=== PATIENT | female | born 1965 | race Caucasian/White ===

== ENCOUNTER 2020-04-29 14:31 | Outpatient (CLI) | payer OTHER, SELFPAY ==
--- NOTE | ~2020-04-29 | MMUS_ITS ---
EXAMINATION: MM diagnostic john BI w [facility], US breast RT limited HISTORY: Follow-up probable benign findings of the right breast. TECHNIQUE: Additional 3-D tomosynthesis images of the breasts were performed and synthetic 2-D images were generated. CAD analysis was submitted and interpreted. High resolution right breast ultrasound was performed. COMPARISON: Comparison to multiple prior studies sequentially, with oldest reviewed study dated 01/20. BREAST PARENCHYMAL COMPOSITION: BREAST PARENCHYMAL COMPOSITION: There are scattered areas of fibroglandular density. FINDINGS: MAMMOGRAPHIC FINDINGS: The breasts are stable. No new masses, calcifications or architectural distortion identified in eithe r breast to suggest malignancy. ULTRASOUND: Right breast ultrasound: At 8:00, 4 cm from the nipple there is a small hypoechoic mass measuring 3 mm maximum dimension witho ut posterior features or internal vascularity, likely complicated cysts. At 8:00, 5 cm from the nippl e, there is a 4 mm cyst. At 10:00, 3 cm from the nipple, there is a 1 cm cyst. IMPRESSION: 1. Probable benign right breast mass at 8:00, 4 cm from the nipple. No definite mammographic correlat e. 2. Recommend 6 month follow-up right breast ultrasound BI-RADS category 3, probably benign findings. Reviewed, dictated and finalized at location A. IMPRESSION: 1. Probable benign right breast mass at 8:00, 4 cm from the nipple. No definite mammographic correlate. 2. Recommend 6 month follow-up right breast ultrasound BI-RADS category 3, probably benign findings.
== END 2020-04-29 14:32 | disposition home or self-care (01) ==
LOC: ANHIMG 14:31
PROVIDERS: PCP Family Medicine; Visit Provider Family Medicine
DX: R92.8 Other abnormal and inconclusive findings on diagnostic imaging of breast (principal)
CPT/HCPCS: 76642; 77062; 77066; G0279

== ENCOUNTER 2020-10-15 13:43 | Emergency (ER) | payer OTHER, SELFPAY ==
[2020-10-15 13:54] VITALS: BP 130/72; PULSE 80; RESP 20; TEMP 36.9; O2SAT 100
[2020-10-15 13:58] VITALS: BP 130/72; PULSE 80; RESP 20; TEMP 36.9; O2SAT 100
--- NOTE | 2020-10-15 14:22 | ED.BACK ---
HPI - Back Pain/Injury General Chief Complaint: Back Pain/Injury Stated Complaint: back pain Source: patient and RN notes reviewed Limitations: no limitations History of Present Illness HPI Narrative: The obese patient, a non-smoker/nondrinker, presents with recurrent low back pain. Patient states she has had a history of lumbar spondylolysis based upon CT scan 2019 showing diffuse L2?s1 canal stenosis, disc bulgings, facet arthreopathy and mild foraminal stenosis. She now complains of opposite, left low back pain that is mild, worse with motion, better at rest. No bowel?bladder symptoms, hematuria/frequency/urgency, weakness, nor radiating pain and numbness [like past, remote episodes]. She has seen pain management and physical therapy in the past, and advised to restart PT exercises Related Data Allergies Allergy/AdvReac Type Severity Reaction Status Date / Time amoxicillin Allergy Unknown hives Verified 04/11/20 13:23 aspirin Allergy Unknown Unknown Verified 04/11/20 13:23 ciprofloxacin Allergy Unknown Unknown Verified 04/11/20 13:23 ibuprofen Allergy Unknown Unknown Verified 04/11/20 13:23 levofloxacin Allergy Unknown Unknown Verified 04/11/20 13:23 Sulfa (Sulfonamide Allergy Unknown Hives Verified 04/11/20 13:23 Antibiotics) sulfamethizole Allergy Unknown Verified 04/11/20 13:23 sulfamethoxazole Allergy Unknown Unknown Verified 04/11/20 13:23 trimethoprim Allergy Unknown Unknown Verified 04/11/20 13:23 lavender (Lavandula Allergy Unknown Verified 04/11/20 13:23 angustifolia) Review of Systems Review of Systems: Narrative: General/Constitutional: No weight loss,fever Eyes: N0: Redness,discharge Ears/Nose/Throat: No: Epistaxis,ear discharge Respiratory: Denies: Hemoptysis Gastrointestinal: No Vomiting, Bleeding-rectal Skin: No Lumps, eruption Neurologic: No Focal Weakness,Sz Hematologic: Denies: Petechiae/Purpura Psychiatric: No: Suicida ideationl All Other Systems: Reviewed and Negative PMFSH Past Medical History Medical History (Updated 10/15/20 @ 14:46 by Trung Scruggs MD) Allergies GERD (gastroesophageal reflux disease) Hyperlipidemia Surgical History Surgical History (Updated 04/11/20 @ 13:23 by Maribell Brumfield) Brain tumor 2006 benign delivery delivered 1993 1995 Family History Family History (System 04/11/20 @ 13:23 by Maribell Brumfield) Father Diabetes mellitus Hypertension Grandparent Diabetes mellitus Mother Hypertension Family history of lung cancer Family history of throat cancer Father Hypertension Family history of diabetes mellitus in first degree relative Mother Hypertension Throat cancer Lung cancer Sibling Family history of elevated blood lipids Grandparent Skin cancer Diabetes mellitus Stomach cancer Hypertension Social History Social History (System 04/11/20 @ 13:23 by Maribell Brumfield) Smoking status: Never smoker Second hand tobacco smoke exposure: Yes Alcohol intake: current Substance use: never Gender identity (if verbalized by the patient): Female Comments At time of signature, agree with nursing past medical, surgical, social and family history. There is no relevant family history pertinent to the presenting complaint Exam Narrative: Exam Narrative: General Appearance: Obese/well nourished, Conjunctiva clear Mouth/Throat: Normal appearing, Supple Respiratory: Airway patent Abdomen: Soft Musculoskeletal: Normal strength (no footdrop, 5/5 : EH L-FHL, gastroc-AT, no saddle weakness) Spine/Back: Paraspinal muscle tender (with mild decreased range of motion; left posterior superior iliac crest) Skin: Normal color Neurological: A&O x3, CN II-XII intact, no foot drop, normal reflexes (symmetric, 2+ KJ, trace AJ) Psychiatric: Normal mood Course Vital Signs Vital signs: Vital Signs Temperature 98.4 F 10/15/20 13:54 Pulse Rate 80 10/15/20 13:54 Respiratory Rate 20 01
== END 2020-10-15 14:27 | disposition home or self-care (01) ==
PROVIDERS: Emergency Provider Emergency Medicine; PCP Family Medicine
DX: M47.816 Spondylosis without myelopathy or radiculopathy, lumbar region (principal); K21.9 Gastro-esophageal reflux disease without esophagitis; E78.5 Hyperlipidemia, unspecified
CPT/HCPCS: 99213; G0463

== ENCOUNTER 2021-02-27 17:06 | Emergency (ER) | payer OTHER, SELFPAY ==
--- NOTE | 2021-02-27 17:13 | ED.FEMALEGU ---
HPI - Female Genitourinary General Chief complaint: Urogenital-Female Stated complaint: uti Time Seen by Provider: 02/27/21 17:13 History of Present Illness HPI Narrative: patient presents withurinary urgency and frequency for the past week. no back or flank pain no abdominal pain no gross hematuria. no concern for std no vaginal discharge Related Data Allergies Allergy/AdvReac Type Severity Reaction Status Date / Time amoxicillin Allergy Unknown hives Verified 04/11/20 13:23 aspirin Allergy Unknown Unknown Verified 04/11/20 13:23 ciprofloxacin Allergy Unknown Unknown Verified 04/11/20 13:23 ibuprofen Allergy Unknown Unknown Verified 04/11/20 13:23 levofloxacin Allergy Unknown Unknown Verified 04/11/20 13:23 Sulfa (Sulfonamide Allergy Unknown Hives Verified 04/11/20 13:23 Antibiotics) sulfamethizole Allergy Unknown Verified 04/11/20 13:23 sulfamethoxazole Allergy Unknown Unknown Verified 04/11/20 13:23 trimethoprim Allergy Unknown Unknown Verified 04/11/20 13:23 lavender (Lavandula Allergy Unknown Verified 04/11/20 13:23 angustifolia) Review of Systems Review of Systems: Narrative: CONSTITUTIONAL: Denies fever, chills, or sweats. EYES: Denies visual changes, redness, or discharge. ENT: Denies rhinorrhea, congestion, sore throat, or otalgia. CARDIOVASCULAR: Denies chest pain, palpitations, or edema. RESPIRATORY: Denies cough or dyspnea. GASTROINTESTINAL: Denies abdominal pain, nausea, vomiting, or diarrhea. GENITOURINARY: Denies dysuria or hematuria. SKIN: Denies rash or itching. MUSCULOSKELETAL: Denies back pain, joint pain, or myalgia. NEUROLOGIC: Denies headache, numbness, or weakness. PSYCHIATRIC: Denies anxiety or depression. [facility] Past Medical History Medical History (Updated 02/27/21 @ 17:30 by ISAIAS Galvin) Allergies GERD (gastroesophageal reflux disease) Hyperlipidemia Surgical History Surgical History Brain tumor 2006 benign delivery delivered 1992 1994 Family History Family History Father Diabetes mellitus Hypertension Grandparent Diabetes mellitus Mother Hypertension Family history of lung cancer Family history of throat cancer Father Hypertension Family history of diabetes mellitus in first degree relative Mother Hypertension Throat cancer Lung cancer Sibling Family history of elevated blood lipids Grandparent Skin cancer Diabetes mellitus Stomach cancer Hypertension Social History Social History Smoking status: Never smoker Second hand tobacco smoke exposure: Yes Alcohol intake: current Substance use: never Gender identity (if verbalized by the patient): Female Comments At time of signature, agree with nursing past medical, surgical, social and family history. There is no relevant family history pertinent to the presenting complaint Exam Narrative: Exam Narrative: GENERAL: Well-appearing, well-nourished, and in no acute distress. HEAD: Normocephalic, atraumatic. EYES: PERRLA and EOMI. ENT: Nares clear, no rhinorrhea or epistaxis. Mucous membranes moist. NECK: Supple. CHEST: Clear to auscultation. No respiratory distress. HEART: Regular rate and rhythm. No murmur heard. Normal peripheral pulses. ABDOMEN: Soft, nontender, nondistended, normal active bowel sounds. EXTREMITIES: Normal range of motion. No edema. SKIN: Warm, dry, no rash. NEURO: No focal deficits. Alert and oriented x3. Julia Coma Scale Eye Opening: Spontaneous 4 Julia Coma Scale Motor: Obeys Commands 6 Julia Coma Scale Verbal: Oriented 5 [place] Coma Scale Total 15 Course Vital Signs Vital signs: Vital Signs Temperature 36.3 C L 02/27/21 17:17 Pulse Rate 90 02/27/21 17:17 Respiratory Rate 18 02/27/21 17:17 Blood Pressure 144/79 H 02/27/21 17:17 Pulse Oximetry 100 0
[2021-02-27 17:17] VITALS: BP 144/79; PULSE 90; RESP 18; TEMP 36.3; O2SAT 100
--- NOTE | 2021-03-01 16:46 | PC.NURSE ---
SUSTAIN[employer] MANAGER Steve Steen called patient regarding urine culture, positive for escherichia coli, called in prescription for macrobid
== END 2021-02-27 17:28 | disposition home or self-care (01) ==
LOC: EXPTROY 17:09
PROVIDERS: Emergency Provider Nurse Practitioner Family; PCP Family Medicine
DX: R30.0 Dysuria (principal); B96.20 Unspecified Escherichia coli [E. coli] as the cause of diseases classified elsewhere; K21.9 Gastro-esophageal reflux disease without esophagitis; E78.5 Hyperlipidemia, unspecified
CPT/HCPCS: 81003; 87077; 87086; 87088; 87186; 99213; G0463

== ENCOUNTER 2021-09-17 16:49 | Emergency (ER) | payer OTHER, SELFPAY ==
--- NOTE | 2021-09-17 16:56 | ED.URI ---
HPI - URI/Sore Throat General Chief Complaint: Upper Respiratory Infection Stated Complaint: cough/wheezing Time Seen by Provider: 09/17/21 17:01 Source: patient and RN notes reviewed Mode of arrival: ambulatory Limitations: no limitations History of Present Illness HPI Narrative: Laura a 5-year-old female patient who ambulated into the [facility] of the [facility]. Patient states she has a 2-week history of sinus congestion, postnasal drainage, and cough. Patient states when she lays at night she feels like she is wheezing. Patient has tried multiple [id number]-fnt-vqrupud cold medicines without relief. Patient states her entire family has had this. Patient states she had a negative Covid test at home MD elicited complaint: cough, nasal congestion and sinus pain Related Data Allergies Allergy/AdvReac Type Severity Reaction Status Date / Time amoxicillin Allergy Unknown hives Verified 09/17/21 17:12 aspirin Allergy Unknown Unknown Verified 09/17/21 17:09 ciprofloxacin Allergy Unknown Unknown Verified 09/17/21 17:09 ibuprofen Allergy Unknown Unknown Verified 09/17/21 17:09 levofloxacin Allergy Unknown Unknown Verified 09/17/21 17:09 Sulfa (Sulfonamide Allergy Unknown Hives Verified 09/17/21 17:09 Antibiotics) sulfamethizole Allergy Unknown Verified 09/17/21 17:09 sulfamethoxazole Allergy Unknown Unknown Verified 09/17/21 17:09 trimethoprim Allergy Unknown Unknown Verified 09/17/21 17:09 lavender (Lavandula Allergy Unknown Verified 09/17/21 17:09 angustifolia) Review of Systems Review of Systems: CONSTITUTIONAL: Denies body aches, fever, chills, or sweats. EYES: Denies visual changes, redness, or discharge. ENT: Denies rhinorrhea,+ congestion, denies sore throat, or otalgia. CARDIOVASCULAR: Denies chest pain, palpitations, or edema. RESPIRATORY: +cough + wheezing, denies dyspnea. GASTROINTESTINAL: Denies abdominal pain, nausea, vomiting, or diarrhea. GENITOURINARY: Denies dysuria or hematuria. SKIN: Denies rash, itching, or wounds. MUSCULOSKELETAL: Denies back pain, joint pain, or myalgia. NEUROLOGIC: Denies headache, numbness, tingling, or weakness. PSYCH: Denies depression or anxiety. All systems reviewed & are unremarkable except as noted in HPI and below PMFSH Past Medical History Medical History Allergies GERD (gastroesophageal reflux disease) Hyperlipidemia Surgical History Surgical History Brain tumor 2006 benign delivery delivered 1992 1994 Family History Family History Father Diabetes mellitus Hypertension Grandparent Diabetes mellitus Mother Hypertension Family history of lung cancer Family history of throat cancer Father Hypertension Family history of diabetes mellitus in first degree relative Mother Hypertension Throat cancer Lung cancer Sibling Family history of elevated blood lipids Grandparent Skin cancer Diabetes mellitus Stomach cancer Hypertension Social History Social History Smoking status: Never smoker Second hand tobacco smoke exposure: Yes Alcohol intake: current Substance use: never Gender identity (if verbalized by the patient): Female Comments At time of signature, I have reviewed and agree with nursing past medical, surgical, social and family history unless otherwise noted. Please see nursing chart for further information. There is no relevant family history pertinent to the presenting complaint Exam Narrative: GENERAL: Well-appearing, well-nourished, and in no acute distress. HEAD: Normocephalic, atraumatic. EYES: EOMI. No redness or drainage. Conjunctivae normal. ENT: Mucous membranes pink and slightly dry. Nasal membranes pale no rhinorrhea noted bilateral tympanic membranes are opaque with moderate amount of fluid no eryth
[2021-09-17 17:02] VITALS: BP 176/98; PULSE 84; RESP 20; TEMP 36.3; O2SAT 100
--- NOTE | 2021-09-17 17:10 | PC.NURSE ---
170- Pt states, she has chronic hives and believes she is really only allergic to: NSAIDs, Cipro, Levaquin and Sulfa drugs.
== END 2021-09-17 17:19 | disposition home or self-care (01) ==
PROVIDERS: Emergency Provider Nurse Practitioner Family; PCP Family Medicine
DX: J32.9 Chronic sinusitis, unspecified (principal); K21.9 Gastro-esophageal reflux disease without esophagitis; E78.5 Hyperlipidemia, unspecified
CPT/HCPCS: 99213; G0463

== ENCOUNTER 2022-02-02 07:21 | Outpatient (CLI) | payer OTHER, SELFPAY ==
--- NOTE | 2022-02-13 16:47 | WPDSLEEPSTUD ---
Sleep Study Date of Study: 02/02/22 Ordering Provider: Renea Castillo DO Interpreting Physician: Nicolle Casarez MD Sleep Study Type: Polysomnogram Height: 1.66 m Weight: 113.398 kg Body Mass Index: 40.9 Neck Circumference (inches): 14 [place]: 10 Reason for Sleep Study Hypersomnolence, difficulty getting to sleep and staying asleep Sleep History Laura Barbour is a 56 year old female with difficulty falling asleep and staying asleep. She wakes up throughout the night. She has excessive daytime sleepiness. She occasionally wakes up from sleep feeling short of breath. She occasionally awakens at night with heartburn, belching or coughing. She constantly snores loudly enough that others complain about it. She frequently has trouble sleeping with a cold. She occasionally wakes up gasping for breath at night. She occasionally has breathing problems at night observed by others. She rarely sweats excessively at night. She occasionally notices her heart pounding or beating irregularly at night. She frequently falls asleep during the day, frequently falls asleep involuntarily, but never falls asleep while driving. She does not have loss of muscle tone with strong emotion. She does not have daytime difficulties due to excessive sleepiness. She occasionally feels paralyzed on waking or falling asleep. She frequently has vivid dreamlike scenes upon awakening or falling asleep. She occasionally feels afraid to go to sleep. She rarely has nightmares. She occasionally remembers her dreams. She constantly has racing thoughts. She rarely feels sad or depressed. She constantly has anxiety. She rarely has muscular tension. She occasionally notices parts of her body jerking. She rarely kicks at night. She occasionally has crawling and aching feelings in her legs. She occasionally has leg pain at night. She does not have morning jaw pain. She occasionally grinds her teeth during sleep. She frequently is bothered by pain during the day. She occasionally is awakened by pain at night. She frequently wakes up feeling stiff in the morning. She occasionally awakens with sore or achy muscles. She frequently wakes up with pain in the neck and spine. She has insomnia, fatigue, headaches and she takes antacids regularly. Normal bedtime is between 12 midnight and 3:00 a.m., taking 30 minutes to fall asleep, typically waking up 1 or 2 times during the night. When she awakens, she uses the bathroom, rolls over and sometimes turns on the television. It takes her 15-30 minutes to return to sleep. She wakes in the morning between 7:00 a.m. and 9:00 a.m.. Weekend schedule is the same. She takes naps in the afternoon or evening. A short nap 10 or 15 minutes long may be refreshing. She is usually drowsy for an hour after waking. She feels better in the afternoon compared other times of day. She frequently has morning headaches. Only on occasion does she awaken feeling refreshed. She frequently has memory and concentration difficulties Habits: Never smoked tobacco. Caffeine 1 cup daily. Occasional alcohol. No recreational drugs. [facility] Past Medical History Medical History (Updated 02/13/22 @ 19:10 by Nicolle Casarez MD) Allergies Anxiety Dyspnea GERD (gastroesophageal reflux disease) Hyperglycemia Hyperlipidemia Lumbar arthropathy Surgical History Surgical History Brain tumor 2006 benign delivery delivered 1992 1994 H/O tubal ligation Family History Family History Father Diabetes mellitus Hypertension Grandparent Diabetes mellitus Mother Hypertension Family history of lung cancer Family history of throat cancer Father Hypertension Family history of diabetes mellitus in first degree relative Mother Hypertension Throat cancer Lung cancer Sibling Family history of elevated blood
[2022-02-13 20:18] VITALS: BMI 40.9
== END 2022-02-03 06:28 | disposition home or self-care (01) ==
LOC: ANHCSM 07:21
PROVIDERS: PCP Family Medicine; Visit Provider Family Medicine
DX: R40.0 Somnolence (principal)
CPT/HCPCS: 95810

== ENCOUNTER 2022-02-06 12:38 | Outpatient (CLI) | payer OTHER, SELFPAY ==
--- NOTE | ~2022-02-06 | MMUS_ITS ---
EXAMINATION: MM diagnostic john BI w [facility], US breast LT limited HISTORY: Bilateral axillary pain TECHNIQUE: Bilateral full field and left spot 3-D tomosynthesis images were performed and synthetic 2 -D images were generated. CAD analysis was submitted and interpreted. High resolution upper outer and lower-outer left breast ultrasound was performed. COMPARISON: 04/29/2020 bilateral diagnostic mammogram and limited right breast ultrasound 03/20/2019 diagnostic mammography and bilateral ultrasound 03/05/2019 bilateral screening mammogram BREAST PARENCHYMAL COMPOSITION: There are scattered areas of fibroglandular density. FINDINGS: MAMMOGRAPHIC FINDINGS: Low-density circumscribed 4 x 7 mm opacity is noted in the outer mid left breast. Ultrasound correlat ion was obtained. Otherwise no suspicious mass, architectural distortion, malignant calcification, skin thickening or r etraction of either breast is detected. ULTRASOUND: 3:00 5 cm from nipple: Parallel circumscribed 1.7 x 4.9 mm sonolucency, consistent with benign proces s. 5:00 10 cm from nipple: Parallel circumscribed sonolucency with through transmission, measuring 2.5 x 5.9 x 6.7 mm, without internal vascularity, consistent with cyst IMPRESSION: 1. Benign findings; no mammographic evidence of malignancy 2. Routine annual mammographic screening is recommended BI-RADS Category 2: Benign finding(s). Reviewed, dictated and finalized at location A. IMPRESSION: 1. Benign findings; no mammographic evidence of malignancy 2. Routine annual mammographic screening is recommended BI-RADS Category 2: Benign finding(s).
== END 2022-02-06 12:39 | disposition home or self-care (01) ==
LOC: ANHIMG 12:40
PROVIDERS: PCP Family Medicine; Visit Provider Family Medicine
DX: N64.4 Mastodynia (principal)
CPT/HCPCS: 76642; 77062; 77066; G0279

== ENCOUNTER 2022-02-15 12:24 | Outpatient (CLI) | payer OTHER, SELFPAY ==
--- NOTE | 2022-02-16 12:53 | WPDPFTINT ---
PFT Procedure Performed PFT Procedure Performed Spirometry with Pre/Post Bronchodilator Plethysmography (Lung Vol) Diffusing Cap (DLCO) Flow Vol Loop PFT Interpretation This is a pulmonary function test with pre and post-bronchodilator spirometry, plethysmography and diffusing capacity. The test was performed and results interpreted in accordance with the 2019 and 2005 ATS/ERS Task Force guidelines respectively using the Global Lung Function Initiative-2012 reference equations. Patient demonstrated good effort and cooperation. Reproducibility criteria were met. The quality of the pre bronchodilator spirometry maneuver was Grade A and post bronchodilator spirometry maneuver was Grade A. Findings: Spirometry: In 2 out of the 3 pre bronchodilator maneuvers and 1 out of the 3 post bronchodilator maneuvers there is a flattened inspiratory and expiratory flow tracing. The pre bronchodilator FVC is 3.62 L, 105% predicted. The pre bronchodilator FEV1 is 2.96 L, 108% predicted. The pre bronchodilator FEV1: FVC ratio was 82%. The post bronchodilator FVC is 3.58 L, representing sent in a 1% decrease. The post bronchodilator FEV1 is 3.00 L, representing 1% increase. The post bronchodilator FEV1: FVC ratio was 84%. Plethysmography: The total lung capacity is 4.43 L, 85% predicted. The functional residual capacity is 1.50 L, 51% predicted. The residual volume is 0.81 L, 42% predicted. Diffusing capacity: The diffusing capacity unadjusted for hemoglobin and carboxyhemoglobin is 14.9, 66% predicted. The diffusing capacity adjusted for alveolar volume is 3.52, 78% predicted. Impression: The contour of the expiratory and inspiratory flow tracing are flattened in half of the maneuvers. There could be a fixed obstruction and this can be seen with extraluminal tracheal obstruction, tracheal stenosis, a goiter or bulky mediastinal lymphadenopathy. Clinical correlation is recommended. Otherwise, the spirometry is normal without evidence of an obstructive abnormality. There is no significant improvement after inhaling a single dose of albuterol. The total lung capacity is normal with a decreased functional residual capacity and residual volume. This is an abnormal but nonspecific lung volume pattern. The diffusing capacity unadjusted for hemoglobin and carboxyhemoglobin is mildly decreased and normalizes when adjusted for alveolar volume. There are no prior studies for comparison.
== END 2022-02-15 12:25 | disposition home or self-care (01) ==
LOC: ANHPFT 12:26
PROVIDERS: PCP Family Medicine; Visit Provider Family Medicine
DX: R06.00 Dyspnea, unspecified (principal)
CPT/HCPCS: 94060; 94726; 94729

== ENCOUNTER 2022-03-21 07:33 | Outpatient (CLI) | payer OTHER, SELFPAY ==
--- NOTE | 2022-04-11 18:06 | WPDSLEEPSTUD ---
Sleep Study Date of Study: 03/21/22 Ordering Provider: Renea Castillo DO Interpreting Physician: Nicolle Casarez MD Sleep Study Type: CPAP Titration Height: 1.65 m Weight: 113.398 kg Body Mass Index: 41.5 Neck Circumference (inches): 15 [place]: 10 Reason for Sleep Study Basic sleep study 02/02/2022 showing mild obstructive sleep apnea, AHI 7.5, severe in supine REM 38.3, desaturation to 83%; presents for a CPAP titration Sleep History Laura Barbour is a 56 year old female with difficulty falling asleep and staying asleep.? She wakes up throughout the night.? She has excessive daytime sleepiness.? She occasionally wakes up from sleep feeling short of breath.? She occasionally awakens at night with heartburn, belching or coughing.? She constantly snores loudly enough that others complain about it.? She frequently has trouble sleeping with a cold.? She occasionally wakes up gasping for breath at night.? She occasionally has breathing problems at night observed by others.? She rarely sweats excessively at night.? She occasionally notices her heart pounding or beating irregularly at night.? She frequently falls asleep during the day, frequently falls asleep involuntarily, but never falls asleep while driving.? She does not have loss of muscle tone with strong emotion.? She does not have daytime difficulties due to excessive sleepiness.? She occasionally feels paralyzed on waking or falling asleep.? She frequently has vivid dreamlike scenes upon awakening or falling asleep.? She occasionally feels afraid to go to sleep.? She rarely has nightmares.? She occasionally remembers her dreams.? She constantly has racing thoughts.? She rarely feels sad or depressed.? She constantly has anxiety.? She rarely has muscular tension.? She occasionally notices parts of her body jerking.? She rarely kicks at night.? She occasionally has crawling and aching feelings in her legs.? She occasionally has leg pain at night.? She does not have morning jaw pain.? She occasionally grinds her teeth during sleep.? She frequently is bothered by pain during the day.? She occasionally is awakened by pain at night.? She frequently wakes up feeling stiff in the morning.? She occasionally awakens with sore or achy muscles.? She frequently wakes up with pain in the neck and spine. ? She has insomnia, fatigue, headaches and she takes antacids regularly. Normal bedtime is between 12 midnight and 3:00 a.m., taking 30 minutes to fall asleep, typically waking up 1 or 2 times during the night.? When she awakens, she uses the bathroom, rolls over and sometimes turns on the television.? It takes her 15-30 minutes to return to sleep.? She wakes in the morning between 7:00 a.m. and 9:00 a.m..? Weekend schedule is the same.? She takes naps in the afternoon or evening.? A short nap 10 or 15 minutes long may be refreshing.? She is usually drowsy for an hour after waking.? She feels better in the afternoon compared other times of day.? She frequently has morning headaches.? Only on occasion does she awaken feeling refreshed.? She frequently has memory and concentration difficulties Habits: ? Never smoked tobacco.? Caffeine 1 cup daily.? Occasional alcohol.? No recreational drugs. PMFSH Past Medical History Medical History Allergies Anxiety Dyspnea GERD (gastroesophageal reflux disease) Hyperglycemia Hyperlipidemia Lumbar arthropathy Surgical History Surgical History Brain tumor 2006 benign delivery delivered 1992 1994 H/O tubal ligation Family History Family History Father Diabetes mellitus Hypertension Grandparent Diabetes mellitus Mother Hypertension Family history of lung cancer Family history of throat cancer Father Hypertension Family history of diabetes mellitus in first degree relative Mother H
[2022-04-11 19:08] VITALS: BMI 41.5
== END 2022-03-22 06:50 | disposition home or self-care (01) ==
LOC: ANHCSM 07:34
PROVIDERS: PCP Family Medicine; Visit Provider Family Medicine
DX: G47.33 Obstructive sleep apnea (adult) (pediatric) (principal); Z68.41 Body mass index [BMI] 40.0-44.9, adult
CPT/HCPCS: 95811

== ENCOUNTER → 2022-03-22 14:49 | Outpatient (CLI) | payer OTHER, SELFPAY ==
--- NOTE | ~2022-03-22 | CT_ITS ---
EXAMINATION: CT soft tissue neck wo con DATE: 03/22/2022 15:05 INDICATION: Airway obstruction. Abnormal lung function tests. Dyspnea. TECHNIQUE: Computed tomography (CT) of the neck was performed without intravenous contrast. Automated exposure control and iterative reconstruction technique were employed. The dose-length product was 4 72.21 mGy-cm. COMPARISON: None FINDINGS: There is focal stenosis of the superior trachea to 7 x 8 mm. There are no pathologically en larged lymph nodes. There are changes of right-sided craniotomy. There is encephalomalacia in the fro ntal lobes of the brain, right worse than left. There is moderate cervical spondylosis. IMPRESSION: 1. 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 Reviewed, dictated and finalized at location B.
== END ==
PROVIDERS: PCP Family Medicine; Visit Provider Family Medicine
DX: R94.2 Abnormal results of pulmonary function studies (principal); R06.00 Dyspnea, unspecified; J39.8 Other specified diseases of upper respiratory tract
CPT/HCPCS: 70490

== ENCOUNTER 2022-06-27 10:16 | Outpatient (CLI) | payer OTHER, SELFPAY ==
--- NOTE | ~2022-06-27 | CT_ITS ---
EXAMINATION:CT diagnostic chest w con DATE: 06/27/2022 10:42 INDICATION: Tracheal stenosis. TECHNIQUE: Computed tomography (CT) of the chest was performed with 75 mL Omnipaque 350 intravenous c ontrast. Automated exposure control and iterative reconstruction technique were employed. The dose-le ngth product (DLP) was 432.89 mGy-cm. COMPARISON: CT neck 03/22/2022 FINDINGS: The lungs demonstrate mild atelectasis. There is a 3 mm nodule in left upper lobe, likely b enign. No pleural effusion. The heart size is normal. No pericardial effusion. There is focal stenosi s of the trachea at C7. The bones are unremarkable. IMPRESSION: 1. Focal stenosis of the superior trachea again seen, which may be an intubation injury if the patien t has never had a tracheostomy. Reviewed, dictated and finalized at location A. IMPRESSION: 1. Focal stenosis of the superior trachea again seen, which may be an intubatio n injury if the patient has never had a tracheostomy.
== END 2022-06-27 10:17 | disposition home or self-care (01) ==
PROVIDERS: PCP Family Medicine
DX: J39.8 Other specified diseases of upper respiratory tract (principal)
CPT/HCPCS: 71260; Q9967

== ENCOUNTER 2022-08-17 13:52 | Emergency (ER) | payer OTHER, SELFPAY ==
[2022-08-17 14:06] VITALS: BP 135/89; PULSE 108; RESP 18; TEMP 36.4; O2SAT 98
--- NOTE | 2022-08-17 14:29 | ED.EAR ---
HPI - Ear Problem General Chief complaint: Ear Stated complaint: rt ear discomfort Source: patient and family Mode of arrival: ambulatory History of Present Illness HPI Narrative: This is a 56-year-old female who presents our urgent care with complaints of right ear discomfort. According to patient for couple of days she has felt like something was moving in her right ear. She did purchase a [id number] care to flush her ear with no results. The patient denies SOB, CP, palpitation, extremity numbness, lightheadedness, dizziness, constipation, decrease in hearing, diarrhea, chills, or fever. Related Data Allergies Allergy/AdvReac Type Severity Reaction Status Date / Time ciprofloxacin Allergy Severe Anaphylactic Verified 08/17/22 14:20 Shock Sulfa (Sulfonamide Allergy Intermediate Hives Verified 08/17/22 14:20 Antibiotics) amoxicillin Allergy Mild hives Verified 08/17/22 14:20 aspirin Allergy Mild Hives Verified 08/17/22 14:20 ibuprofen Allergy Mild Hives Verified 08/17/22 14:20 lavender (Lavandula Allergy Mild Hives Verified 08/17/22 14:20 angustifolia) levofloxacin Allergy Mild Hives Verified 08/17/22 14:20 sulfamethizole Allergy Mild Hives Verified 08/17/22 14:20 trimethoprim Allergy Mild Hives Verified 08/17/22 14:20 Review of Systems Review of Systems: A 14 organ system Review of Systems was performed and pertinent positives included in the HPI, otherwise remaining ROS is negative. [facility] Past Medical History Medical History Allergies Anxiety Dyspnea GERD (gastroesophageal reflux disease) Hyperglycemia Hyperlipidemia Lumbar arthropathy Surgical History Surgical History Brain tumor 2006 benign delivery delivered 1992 1994 H/O tubal ligation Family History Family History Father Diabetes mellitus Hypertension Grandparent Diabetes mellitus Mother Hypertension Family history of lung cancer Family history of throat cancer Father Hypertension Family history of diabetes mellitus in first degree relative Mother Hypertension Throat cancer Lung cancer Sibling Family history of elevated blood lipids Grandparent Skin cancer Diabetes mellitus Stomach cancer Hypertension Social History Social History Smoking status: Never smoker Second hand tobacco smoke exposure: Yes Alcohol intake: current Substance use: never Gender identity (if verbalized by the patient): Female Agree to blood products: Yes Exam Narrative: GENERAL: This is a well-nourished, well-developed patient, in no apparent distress. HEAD: normocephalic, atraumatic. EYES: PERRL. Sclera clear/white. Vision is grossly intact. EARS: External ears normal, auditory canals clear and without drainage, TMs normal without perforation. Hearing grossly intact. NOSE: External nose normal with no obvious nasal discharge, nares without redness, no rhinorrhea. THROAT: Mucous membranes moist, posterior pharynx clear. NECK: Neck supple, non-tender without lymphadenopathy, masses or thyromegaly. CARDIOVASCULAR: Regular rate and rhythm without murmurs, gallops, or rubs. RESPIRATORY: Clear to auscultation. Breath sounds equal bilaterally. No wheezes, rales, or rhonchi. GASTROINTESTINAL: Abdomen soft, non-tender, nondistended. Bowel sounds are active. No hepato-splenomegaly, or palpable masses. No guarding. SKIN: warm, intact with no suspicious lesions or rash, good texture and turgor. NEURO: awake, alert, and oriented to person, place and time. There were no obvious focal neurologic abnormalities. EXTREMITIES: Normal range of motion. No edema. No calf tenderness. Course Course Emergency Course: Patient instructed to follow up with her neurologist for further diagnostic testing if her si
== END 2022-08-17 14:30 | disposition home or self-care (01) ==
PROVIDERS: Emergency Provider Nurse Practitioner; PCP Family Medicine
DX: H92.01 Otalgia, right ear (principal); E78.5 Hyperlipidemia, unspecified
CPT/HCPCS: 99211; G0463

== ENCOUNTER 2022-11-27 14:41 | Emergency (ER) | payer OTHER, SELFPAY ==
--- NOTE | 2022-11-27 14:44 | ED.EXTPRO ---
HPI - Extremity Problem General Chief complaint: Extremity Problem,Nontraumatic Stated complaint: Rt Arm Pain Time Seen by Provider: 11/27/22 14:45 Source: patient Mode of arrival: ambulatory Limitations: no limitations History of Present Illness HPI Narrative: Sujatha is a 56-year-old female patient presenting to the clinic today with complaints of right elbow pain x2 weeks. She reports no known injury to the right elbow. Related Data Home Medications Medication Instructions Recorded Confirmed hydrochlorothiazide 12.5 mg tablet 12.5 mg PO DAILY 11/27/22 11/27/22 Allergies Allergy/AdvReac Type Severity Reaction Status Date / Time ciprofloxacin Allergy Severe Anaphylactic Verified 11/27/22 14:48 Shock Sulfa (Sulfonamide Allergy Intermediate Hives Verified 11/27/22 14:48 Antibiotics) amoxicillin Allergy Mild hives Verified 11/27/22 14:48 aspirin Allergy Mild Hives Verified 11/27/22 14:48 ibuprofen Allergy Mild Hives Verified 11/27/22 14:48 lavender (Lavandula Allergy Mild Hives Verified 11/27/22 14:48 angustifolia) levofloxacin Allergy Mild Hives Verified 11/27/22 14:48 sulfamethizole Allergy Mild Hives Verified 11/27/22 14:48 trimethoprim Allergy Mild Hives Verified 11/27/22 14:48 Review of Systems Review of Systems: Pertinent positives per HPI. Patient denies any fever, chills, rash, headache, visual changes, dizziness, cough, runny nose, sore throat, shortness of breath, chest pain, palpitations, nausea, vomiting, diarrhea, constipation, abdominal pain, or any urinary issues. 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 H/O tubal ligation History of bronchoscopy Family History Family History Father Diabetes mellitus Hypertension Grandparent Diabetes mellitus Mother Hypertension Family history of lung cancer Family history of throat cancer Father Hypertension Family history of diabetes mellitus in first degree relative Mother Hypertension Throat cancer Lung cancer Sibling Family history of elevated blood lipids Grandparent Skin cancer Diabetes mellitus Stomach cancer Hypertension Social History Social History Smoking status: Never smoker Second hand tobacco smoke exposure: Yes Alcohol intake: current Substance use: never Living arrangements: with family Gender identity (if verbalized by the patient): Female Agree to blood products: Yes Comments At the time of my signature, I reviewed and agree with the nursing past medical, surgical, social, and family history. There is no relevant family history pertinent to the patient complaint. Exam Narrative: General: Well-developed, well nourished, in no apparent distress Head: Normocephalic, atraumatic. Cardio: Regular rate and rhythm, s1 and s2 normal, no murmur appreciated. Resp: Clear to auscultation bilaterally, no rhonchi, rales, wheezing or rubs. Musculoskeletal: No deformity, tender to palpation over the antecubital of the right arm, pain with elbow flexion while pronation and supination, Tinel's causes discomfort however no numbness or tingling, grossly normal range of motion, muscle strength strong and equal, peripheral pulse strong, no edema, no cyanosis, normal gait and station Course Course Emergency Course: Portions of this record may have been created with voice recognition software. Level of Care: Express Care Visit Vital Signs Vital signs: Vital Signs Temperature 36.4 C L 0
[2022-11-27 14:51] VITALS: BP 142/83; PULSE 95; RESP 16; TEMP 36.4; O2SAT 99
== END 2022-11-27 15:00 | disposition home or self-care (01) ==
PROVIDERS: Emergency Provider Nurse Practitioner Family; PCP Family Medicine
DX: M77.8 Other enthesopathies, not elsewhere classified (principal); K21.9 Gastro-esophageal reflux disease without esophagitis; E78.5 Hyperlipidemia, unspecified
CPT/HCPCS: 99213; G0463

== ENCOUNTER 2022-12-10 16:52 | Emergency (ER) | payer OTHER, SELFPAY ==
[2022-12-10 17:07] VITALS: BP 135/86; PULSE 92; RESP 18; TEMP 37.2; O2SAT 99
--- NOTE | 2022-12-10 17:36 | ED.FEMALEGU ---
HPI - Female Genitourinary General Chief complaint: Urogenital-Female Stated complaint: uti symptoms Time Seen by Provider: 12/10/22 17:18 Source: patient Mode of arrival: ambulatory Limitations: no limitations History of Present Illness HPI Narrative: Patient presents today with a 4 day history of urinary urgency, frequency, and dysuria. Denies abdominal pain, fever, nausea vomiting, sweats or chills, back pain. She has tried no [id number] medication for symptoms prior to arrival. She has increased her water and cranberry juice intake. History of frequent UTIs. Multiple antibiotic allergies. In 2020 she was at this [facility] and had a negative urinalysis, but her culture grew back E coli. Related Data Home Medications Medication Instructions Recorded Confirmed hydrochlorothiazide 12.5 mg tablet 12.5 mg PO DAILY 11/27/22 12/10/22 Allergies Allergy/AdvReac Type Severity Reaction Status Date / Time ciprofloxacin Allergy Severe Anaphylactic Verified 12/10/22 17:35 Shock amoxicillin Allergy Mild hives Verified 12/10/22 17:05 aspirin Allergy Mild Hives Verified 12/10/22 17:05 ibuprofen Allergy Mild Hives Verified 12/10/22 17:05 lavender (Lavandula Allergy Mild Hives Verified 12/10/22 17:05 angustifolia) levofloxacin Allergy Mild Hives Verified 12/10/22 17:05 Sulfa (Sulfonamide Allergy Mild Hives Verified 12/10/22 17:35 Antibiotics) sulfamethizole Allergy Mild Hives Verified 12/10/22 17:05 trimethoprim Allergy Mild Hives Verified 12/10/22 17:05 Review of Systems Review of Systems: CONSTITUTIONAL: Denies body aches, fever, chills, or sweats. EYES: Denies visual changes, redness, or discharge. ENT: Denies rhinorrhea, congestion, sore throat, or otalgia. CARDIOVASCULAR: Denies chest pain, palpitations, or edema. RESPIRATORY: Denies cough or dyspnea. GASTROINTESTINAL: Denies abdominal pain, nausea, vomiting, or diarrhea. GENITOURINARY: + urgency, frequency, dysuria SKIN: Denies rash, itching, or wounds. MUSCULOSKELETAL: Denies back pain, joint pain, or myalgia. NEUROLOGIC: Denies headache, numbness, tingling, or weakness. PSYCH: Denies depression or anxiety. PMFSH Past Medical History Medical History Allergies Anxiety Dyspnea GERD (gastroesophageal reflux disease) Hyperglycemia Hyperlipidemia Lumbar arthropathy Surgical History Surgical History Brain tumor 2006 benign. 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 H/O tubal ligation History of bronchoscopy Family History Family History Father Diabetes mellitus Hypertension Grandparent Diabetes mellitus Mother Hypertension Family history of lung cancer Family history of throat cancer Father Hypertension Family history of diabetes mellitus in first degree relative Mother Hypertension Throat cancer Lung cancer Sibling Family history of elevated blood lipids Grandparent Skin cancer Diabetes mellitus Stomach cancer Hypertension Social History Social History Smoking status: Never smoker Second hand tobacco smoke exposure: Yes Alcohol intake: current Substance use: never Living arrangements: with family Gender identity (if verbalized by the patient): Female Agree to blood products: Yes Comments At time of signature, I have reviewed and agree with nursing past medical, surgical, social and family history unless otherwise noted. Please see nursing chart for further information. There is no relevant family history pertinent to the presenting complaint Exam Narrative: GENERAL: Well-appearing, well-nourished, and in no acute distress. HEAD: Normocephalic, atraumatic. EYES: EOMI. No redness or drainage. Conjunctiv
== END 2022-12-10 17:41 | disposition home or self-care (01) ==
PROVIDERS: Emergency Provider Nurse Practitioner; PCP Family Medicine
DX: R30.0 Dysuria (principal); K21.9 Gastro-esophageal reflux disease without esophagitis; E78.5 Hyperlipidemia, unspecified
CPT/HCPCS: 81003; 87086; 87088; 99213; G0463

== ENCOUNTER 2023-02-11 17:18 | Emergency (ER) | payer OTHER, SELFPAY ==
[2023-02-11 17:35] VITALS: BP 143/83; PULSE 94; RESP 18; TEMP 36.9; O2SAT 97
--- NOTE | 2023-02-11 17:53 | ED.URI ---
HPI - URI/Sore Throat General Chief Complaint: Upper Respiratory Infection Stated Complaint: congestion,bilateral ear discomfort Time Seen by Provider: 02/11/23 17:50 Source: patient and RN notes reviewed Mode of arrival: ambulatory Limitations: no limitations History of Present Illness HPI Narrative: 57-year-old female presents with concern for lymph node pain, at nasal congestion, neck pain, fever, chills, sore throat, hot flashes. Reports she was sick about 3 weeks ago, she got mostly better, and then has gotten sick again, reports she thinks her gave it back to her. She reports she has been taking Coricidin HBP, Benadryl, Flonase, Tylenol without relief. She is going to visit her and that grandson in about 2 weeks MD elicited complaint: fever and nasal congestion Related Data Home Medications Medication Instructions Recorded Confirmed hydrochlorothiazide 12.5 mg tablet 12.5 mg PO DAILY 11/27/22 02/11/23 Allergies Allergy/AdvReac Type Severity Reaction Status Date / Time ciprofloxacin Allergy Severe Anaphylactic Verified 02/11/23 17:36 Shock amoxicillin Allergy Mild hives Verified 02/11/23 17:36 aspirin Allergy Mild Hives Verified 02/11/23 17:36 ibuprofen Allergy Mild Hives Verified 02/11/23 17:36 lavender (Lavandula Allergy Mild Hives Verified 02/11/23 17:36 angustifolia) levofloxacin Allergy Mild Hives Verified 02/11/23 17:36 Sulfa (Sulfonamide Allergy Mild Hives Verified 02/11/23 17:36 Antibiotics) sulfamethizole Allergy Mild Hives Verified 02/11/23 17:36 trimethoprim Allergy Mild Hives Verified 02/11/23 17:36 Review of Systems Review of Systems: CONSTITUTIONAL: Reports malaise, fatigue, sweats, fever. EYES: Denies visual changes, redness, or discharge. ENT: Reports rhinorrhea, congestion, otalgia and sore throat. CARDIOVASCULAR: Denies chest pain, palpitations, or edema. RESPIRATORY: Reports cough. Denies dyspnea. GASTROINTESTINAL: Denies abdominal pain, nausea, vomiting, diarrhea SKIN: Denies rash or itching. MUSCULOSKELETAL: Denies myalgia. NEUROLOGIC: Denies headache. All systems reviewed & are unremarkable except as noted in HPI and below PMFSH Past Medical History Medical History Allergies Anxiety Dyspnea GERD (gastroesophageal reflux disease) Hyperglycemia Hyperlipidemia Lumbar arthropathy Surgical History Surgical History Brain tumor 2006 benign. 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 H/O tubal ligation History of bronchoscopy Family History Family History Father Diabetes mellitus Hypertension Grandparent Diabetes mellitus Mother Hypertension Family history of lung cancer Family history of throat cancer Father Hypertension Family history of diabetes mellitus in first degree relative Mother Hypertension Throat cancer Lung cancer Sibling Family history of elevated blood lipids Grandparent Skin cancer Diabetes mellitus Stomach cancer Hypertension Social History Social History Smoking status: Never smoker Second hand tobacco smoke exposure: Yes Alcohol intake: current Substance use: never Living arrangements: with family Gender identity (if verbalized by the patient): Female Agree to blood products: Yes Comments At time of signature, agree with nursing past medical, surgical, social and family history. There is no relevant family history pertinent to the presenting complaint Exam Narrative: GENERAL: Well-appearing, well-nourished, and in no acute distress. HEAD: Normocephalic EYES: PERRLA, conjunctivae clear ENT: Nares clear. Mucous membranes moist. TM pearly campbell with dull light reflex bilaterally; no tragal tenderness. Orop
== END 2023-02-11 18:30 | disposition home or self-care (01) ==
PROVIDERS: Emergency Provider Nurse Practitioner; PCP Family Medicine
DX: J01.90 Acute sinusitis, unspecified (principal); K21.9 Gastro-esophageal reflux disease without esophagitis; E78.5 Hyperlipidemia, unspecified
CPT/HCPCS: 87081; 87804; 87880; 99213; G0463

== ENCOUNTER 2023-10-16 13:30 | Outpatient (CLI) | payer OTHER, SELFPAY ==
--- NOTE | ~2023-10-16 | CT_ITS ---
CT Scan of the Chest without Contrast: Clinical Indication: Pulmonary nodule, tracheal stenosis Technique: Contiguous sections were acquired throughout the chest without intravenous contrast. Dose reduction technique was used on this scan by utilizing automated exposure control and iterative recon struction technique. The dose-length product (DLP) was 187.16 mGy-cm. COMPARISON: 06/27/2022 Findings: There is no evidence of any significant mediastinal, hilar or axillary lymphadenopathy. Stable focal stenosis in the upper trachea. No aortic aneurysm. There is no evidence of pleural or pericardial effusion. Stable tiny left upper lobe pulmonary nodule. Right lung clear. Images through the upper abdomen reveal no abnormalities. Impression: Stable focal upper tracheal stenosis. Stable tiny left upper lobe pulmonary nodule. Reviewed, dictated and finalized at location . [employer] Impression: Stable focal upper tracheal stenosis. Stable tiny left upper lobe pulmonary nodule.
== END 2023-10-16 13:31 | disposition home or self-care (01) ==
PROVIDERS: PCP Family Medicine; Visit Provider Physician Assistant
DX: R91.1 Solitary pulmonary nodule (principal); J39.8 Other specified diseases of upper respiratory tract
CPT/HCPCS: 71250

== ENCOUNTER 2025-06-24 15:32 | Outpatient (CLI) | payer OTHER, SELFPAY ==
--- NOTE | ~2025-06-24 | MM_ITS ---
EXAMINATION: MM screening john [facility] w [facility] HISTORY: Screening TECHNIQUE: Craniocaudal and mediolateral oblique 3-D tomosynthesis images were obtained and synthetic 2-D images were generated. CAD analysis was submitted and interpreted. COMPARISON: No prior mammogram is available for comparison at this institution. BREAST PARENCHYMAL COMPOSITION: Not Dense: The breasts are almost entirely fatty. FINDINGS: There is no evidence of suspicious mass, calcification, or architectural distortion to suggest malignancy. Focal asymmetry in the upper- outer quadrant of the right breast, middle depth. IMPRESSION: 1. Focal asymmetry in the upper-outer quadrant of the right breast, middle depth. The study is incomplete. A diagnostic mammogram and a diagnostic ultrasound are recommended. BI-RADS 0: Incomplete-Need additional imaging evaluation. Reviewed, dictated and finalized at location Q. IMPRESSION: 1. Focal asymmetry in the upper-outer quadrant of the right breast, middle dept h. The study is incomplete. A diagnostic mammogram and a diagnostic ultrasound are recommended. BI-RADS 0: Incomplete-Need additional imaging evaluation.
--- OUTSIDE RECORDS SUMMARY | 2025-06-24 15:36 | XMS_ITS | Encounter Summary ---
Author Organization [facility] Address [address] [place] [address] Care Team Providers Care House Rn Name Role Phone Sherley Vega MD Primary Care Provider [phone] Encounter Details Date Type Department Care Team (Late st Contact Info) Description 01/04/2024 Eat In Cheft Message Enc [facility] Family & Internal Medicine [facility] [id number] [place] [phone] [place] [id number] [place] [address]. 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 Answer Date of Assessment Author Status No 12/28/2021 7:42 AM CDT Activ e * Do you have serious difficulty walking or climbing stairs? Answer Date of Assessment Author Status No 12/28/2021 7:42 AM CDT Maria D Trimble RN Active * Do you have difficulty dressing or bathing? Answer Date of Assessment Author Status No 12/28/2021 7:42 AM CDT Maria D Trimble RN Active * Because of a physical, mental, or emotional condition, do you have difficulty doing errands alone such as visiting a doctor's office or shopping? Answer Date of Assessment Author Status No 12/28/2021 7:42 AM CDT Maria D Trimble RN Active documented as of this encounter Mental Status * Because of a physical, mental, or emotional condition, do you have serious difficulty concentrating, remembering, or making decisions? Answer Entry Date Author Status No 12/28/2021 7:42 AM CDT Maria D Trimble RN Active documented in this encounter Progress Notes * Key Narayanan MA - 01/07/2024 1:59 PM CDT Please advise. Thank you! documented in this encounter Plan of Treatment Upcoming Encounters Date Type Department Care Team (Late st Contact Info) Description 06/30/2025 1:00 PM CDT Appointment [facility] [address] [place] [address] [place] [address] [facility]. 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 [address] [place] [address] 03/21/2026 10:45 AM CDT Office Visit [facility] [address] [place] [phone] Marty Hopper MD [facility]. [facility] [address] [place] [address] documented as of this encounter Visit Diagnoses Not on filedocumented in this encounter Care Teams House Rn Relationship Specialty [place] [address] [place] [address] PCP - General FAMILY PRACTICE 09/20/22 documented as of this encounter
--- OUTSIDE RECORDS SUMMARY | 2025-06-24 15:36 | XMS_ITS | Clinical Summary ---
Author Organization [facility] Address [address] [facility] [place] [address] Phone Care Team Providers Care Cloth Weigher Name Role Phone Pcp, No Primary Care Provider Unavailabl e Allergies Active Allergy Reactions Criticality Noted Date Comments Aspirin 10/18/2017 Bacitracin 10/18/2017 Ciprofloxacin 10/18/2017 Lavender (Lavandula Angustifolia) Levofloxacin 10/18/2017 Ibuprofen 10/18/2017 Nickel 10/18/2017 Sulfamethoxazole-Trimethoprim 2017 Medications omeprazole (PRILOSEC) [address] capsule Take 10 mg by mouth one (1) time a day Active diphenhydrAMINE (BENADRYL) 25 mg tablet Take 25 mg by mouth nightly as needed for sleep Active Social History Tobacco Use Types Packs/Day Years Used Date Smoking Tobacco: Every Day Smokeless Tobacco: Never Intimate Partner Safety Answer Date Rec orded Intimate Partner Safety Not At Risk 12/07/19 24 Intimate Partner Safety Not on file 12/07/19 24 Intimate Partner Safety Not on file 12/07/19 24 Intimate Partner Safety Not on file 12/07/19 24 Intimate Partner Safety Not on file 12/07/19 24 Comments No Sex and Gender Information Value Date Recorded Sex Assigned at Not on file Legal Sex Female 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 Gender Identity Not on file Sexual Orientation Not on file Last Filed Vital Signs Vital Sign Reading Time Taken Comments Blood Pressure 121/79 02/21/2019 9:23 PM CDT Pulse 83 02/21/2019 9:23 PM CDT Temperature 36.4 C (97.6 F) 02/21/2019 7:32 PM CDT Respiratory Rate 18 02/21/2019 9:23 PM CDT Oxygen Saturation 96% 02/21/2019 9:23 PM CDT Inhaled Oxygen Concentration - - Weight 113.4 kg (250 lb) 02/21/2019 7:32 PM CDT Height 165.1 cm (5' 5) 02/21/2019 7:32 PM CDT Body Mass Index 41.6 02/21/2019 7:32 PM CDT Plan of Treatment Health Maintenance Due Date Last Done Comments Colonoscopy Every 6 Months 1967 Colorectal Cancer Screening Annual FOBT/FIT Test 11/29 Colorectal Cancer Screening Cologuard 1967 Colorectal Cancer Screening Flex Sigmoidoscopy 968 Annual Depression Screening 1978 Annual Physical 1985 Hepatitis C Antibody Screen 1985 DTap/Tdap/Td Vaccines (1 - Tdap) 1986 Pneumococcal Vaccine Age 50+ (1 of 2 - PCV) 1986 Cervical Cancer Screening 1988 Mammogram 2007 Colorectal CA Screen 10 Year Colonoscopy 2012 Colorectal Cancer Screening 2012 Zoster Vaccine (Shingles) (1 of 2) 2017 Flu Vaccine (#1) 06/07/2025 Influenza Vaccine 06/07/2025 Insurance PRIME Care Teams Cloth Weigher Relationship Specialty Start Date End Date Pcp, No PCP - General 10/18/17
--- OUTSIDE RECORDS SUMMARY | 2025-06-24 15:37 | XMS_ITS | Encounter Summary ---
Author Organization [facility] Address [address] [place] [address] Care Team Providers Care Biologics Specialist Name Role Phone Sherley Vega MD Primary Care Provider [phone] Reason for Visit * Reason Onset Date Comments Medication Request 06/23/2025 Encounter Details Date Type Department Care Team (Late st Contact Info) Description 06/23/[address] [facility] Family & Internal Medicine [facility] [address] [place] [address] [place] Vega [place] [id number] [place] [address]. 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 She has had a medicine sometime in her past when she had had a MRI and it helped but she isuncertain of the name. /Rossy. NICANOR#[phone] documented in this encounter Plan of Treatment Upcoming Encounters Date Type Department Care Team (Late st Contact Info) Description 06/30/2025 1:00 PM CDT Appointment [facility] [address] [place] [address] [place] [address] [facility]. [address] [place], [place] [phone] 11/26/2025 8:00 AM BOILERMAKER HELPER Laboratory Only [facility] Family & Internal [facility] [address] [place] [phone] 12/03/2025 2:20 PM BOILERMAKER HELPER Office Visit [facility] [place] [address] [place] [phone] [place] [address] [facility] [address] [place] [address] 03/21/2026 10:45 AM CDT Office Visit [facility] [address] [place] [phone] Marty Hopper MD [address] [address] documented as of this encounter Visit Diagnoses Not on filedocumented in this encounter Care Teams Biologics Specialist Relationship Specialty [place] [address] [facility] [address] [place] [address] PCP - General FAMILY PRACTICE 09/20/22 documented as of this encounter
--- OUTSIDE RECORDS SUMMARY | 2025-06-24 15:37 | XMS_ITS | Clinical Summary ---
Author Organization [facility] Address [facility] [place] [address] Care Team Providers Care Net Developer Name Role Phone Sherley Vega MD Primary Care Provider [phone] Allergies Active Allergy Reactions Criticality Noted Date Comments Aspirin Hives 10/18/2017 Bacitracin Hives 10/18/2017 Ciprofloxacin Hives 10/18/2017 Ibuprofen Hives 10/18/2017 Lavender Oil Hives 10/18/2017 Levofloxacin Hives 10/18/2017 Nickel Hives 10/18/2017 Sulfa Antibiotics Hives 12/26/2021 Sulfamethoxazole-Trimethoprim Hives 2017 Medications diphenhydrAMINE 25 MG tablet Take 1 tablet (25 mg total) by mouth every 6 (six) hours as needed for Itching (hives). Active Blood Pressure Monitoring (BLOOD PRESSURE MONITOR/L CUFF) Misc Take BP as directed. 1 each 2 Active fluticasone propionate (FLONASE) 50 MCG/ACT nasal spray 1 spray by Nasal route daily. Active vitamin D3, cholecalciferol, 1.25 mg capsuleIndication s:Vitamin D deficiency Take 1 capsule (50,000 Units total) by mouth once a week. 8 capsule 4 Active levalbuterol (XOPENEX HFA) 45 MCG/ACT inhalerIndication s:Dyspnea, unspecified type INHALE 2 PUFFS BY MOUTH EVERY 6 HOURS NEEDED FOR SHORTNESS OF BREATH 15 g 2 4 Active Soft Lens Products (REFRESH CONTACTS DROPS) Solution Active Carboxymethylcell ulose Sodium (REFRESH LIQUIGEL) 1 % Gel Ac tive hydroCHLOROthiazi de (MICROZIDE) 12.5 MG tabletIndications :Primary hypertension Take 1 tablet (12.5 mg total) by mouth every morning. 90 tablet 3 5 Active omeprazole (PRILOSEC) 20 MG capsuleIndication s:GERD without esophagitis Take 1 capsule (20 mg total) by mouth daily. 90 capsule 3 5 Active diphenhydramine-m aalox-lidocaine viscous (MAGIC MOUTHWASH) (MAGIC MOUTHWASH) oral suspensionIndicat ions:Geographic tongue Swish & spi 15 mLs every 6 (six) hours as needed (mouth pain). swish & spit/swallow 200 mL 5 Active Active Problems Problem Noted Date Diagnosed Date Primary hypertension 10/03/2022 GERD without esophagitis 10/03/2022 S/P craniotomy 10/03/2022 Chest pain 12/28/2021 Encounters Date Type Department Care Team Description 06/23/2025 Telephone [facility] Family & Internal Medicine [address] [address] Sherley Vega MD Medication Request 05/25/2025 Telephone [facility] Family & Internal [address] [address] Sherley Vega MD Medication 05/24/2025 3:00 PM CDT Office Visit [facility] Family & Internal [address] [address] Sherley Vega MD Follow Up (6 MO F/U- chronic medical condition, medications ) 05/24/2025 Travel from Last 3 Months Immunizations Immunization Administration Dates Next Due FLUCELVAX (ccIIV3, TRIVALENT, 0.5mL) 07/20/2024 Influenza (Generic) 07/28/2013 Influenza Adult (Generic) 07/07/2023,07/20/2022 MODERNA COVID-19 BIVALENT (12+), MRNA, LNP-S, PF 10/17/2022 MODERNA COVID-19 (12+) MRNA, LNP-S, PF, 100 MCG/ 0.5 ML DOSE 03/18/2021,02/18/2021 MODERNA COVID-19 (WASH OIL PUMP OPERATOR WILBERT AMY), MRNA, LNP-S, PF, 50 MCG/ 0.25 ML DOSE 04/19/2022 Td (Tenivac) preservative free 05/24/2025 Tdap (Generic) 02/14/2010 Family History Medical History Relation Comments Diabetes Father Pulmonary Fibrosis Father COPD Mother Cancer in larynx , lungs, and bone Cancer Mother Lung Cancer Mother laryngeal cance Mother Mental Health Sister Bipolar blood clot Son Relation Status Comments Father Mother laryngeal, lung Sister Son Social History Tobacco Use Types Packs/Day Years Used Date Smoking Tobacco: Never Smokeless Tobacco: Never Tobacco Cessation:Counseling Given: No Alcohol Use Standard Drinks/Week Comments Yes 1.7 (1 standard drink = 0.6 oz p ure alcohol) occ PHQ-2 Answer Date Recorded Patient Health Questionnaire-2 Score 0 11/23/2024 Comments No Sex and Gender Information Value Date Recorded Sex Assigned at Female 11/17/2024 8:18 AM ENVIRONMENTAL SERVICES TECH Legal Sex Female 6:10 PM CDT Gender Identity Female 05/24/2025 2:56 PM CDT Sexual Orientation Not on file Last Filed Vital Signs Vital Sign Reading Time Taken Comments Blood Pressure 124/83 05/24/2025 2:56 PM CDT Pulse 97 05/24/2025 2:56 PM CDT Temperature 36.4 C (97.5 F) 05/24/2025 2:56 PM CDT Respiratory Rate 18 05/24/2025 2:56 PM CDT Oxygen Saturation 96% 05/24/2025 2:56 PM CDT Inhaled Oxygen Concentration - - Weight 123.4 kg (272 lb) 05/24/2025 2:56 PM CDT Height 165.1 cm (5' 5) 05/24/2025 2:56 PM CDT Body Mass Index 45.26 05/24/2025 2:56 PM CDT Plan of Treatment Upcoming Encounters Date Type Department Care Team (Late st Contact Info) Description 06/30/2025 1:00 PM CDT Appointment [facility] [address] [place] [address] [place] [address] [place] [address] 11/26/2025 8:00 AM ENVIRONMENTAL SERVICES TECH Laboratory Only [facility] Family & Internal [facility] [address] [place] [address] 12/03/2025 2:20 PM ENVIRONMENTAL SERVICES TECH Office Visit [facility] & Internal [facility] [address] [place] [address] [place] [address] [facility] [place], [place] [id number] 03/21/2026 10:45 AM CDT [facility] [address] [place] [id number] Marty Hopper MD [address] [id number] Health Maintenance Due Date Last Done Comments Hepatitis C 1985 Hepatitis B Vaccines (1 of 3 - 19+ 3-dose series) 1986 Pneumococcal Vaccine: 50+ Years (1 of 1 - PCV) 2017 Zoster Vaccines (1 of 2) 2017 Annual Physical 07/11/2024 07/11/2023 COVID-19 Vaccine ( season) 2025 07/07/2023, 10/17/2022, 04/19/2022, Additional history exists Mammogram Screening 10/08/2025 10/08/2023, Colorectal Cancer Screening FIT-DNA (3 Years) 10/15/2025 10/15/2022, 10/15/2022 Cervical Cancer Screening Pap Smear (Age 30 to 64) Every 3 Years 07/11/2026 07/11/2023 Cervical Cancer Screening Pap with HPV Testing (Age 30 to 64) Every 5 Years 07/11/2028 07/11/2023 Cervical Cancer Screening with HPV 07/11/2028 DTaP, Tdap and Td Vaccines (3 - Td or Tdap) 05/24/2035 05/24/2025, 02/14/2010 PHQ-2 (Physician Maybee) Completed 11/23/2024 Meningococcal B Vaccine Aged Out No l onger eligible based on patient's age to complete this topic Meningococcal Vaccine Aged Out No jared alex eligible based on patient's age to complete this topic RSV Immunizations Under 20 Months Aged Out No longer eligible based on patient's age to complete this topic Procedures Procedure Name Priority Date/Time Associated Diagnosis Comments MG RAFAT Leon ELI RT DIGI Routine 10/08/2023 11:08 AM ENVIRONMENTAL SERVICES TECH Abnormal mammogram CYTOPATH CERV/VAG THIN LAYER Routine 07/11/2023 10:29 AM CDT Cervical cancer screening HUMAN PAPILLOMAVIRUS, HIGH-RISK TYPES Routine 07/11/2023 8:00 AM CDT COLOGUARD (EXACT SCIENCE) Routine 10/15/2022 10:49 AM ENVIRONMENTAL SERVICES TECH Colon cancer screening from Last 3 Months or Most Recently Relevant to Health Maintenance Results * MG COLLINSG Edward ELI RT DIGI (10/08/2023 11:08 AM ENVIRONMENTAL SERVICES TECH) Anatomical Region Laterality Modality Breast Right Mammography 10/08/2023 11:3 7 AM ENVIRONMENTAL SERVICES TECH Narrative 10/08/2023 11:40 AM ENVIRONMENTAL SERVICES TECH EXAMINATION: MG RAFAT Leon ELI RT DIGI INDICATIONS: Abnormal mammogram TECHNIQUE: Digital full field true lateral and spot compression CC and MLO diagnostic views of the right breast to include 3-D Tomosynthesis technique. This study was read with the assistance of a computer-aided detection system. HISTORY: Patient presents for diagnostic evaluation of abnormal screening mammography. Patient asymptomatic without complaint. Prior breast procedure. No personal or family history of breast cancer. COMPARISON: Multiple prior examinations available for comparison dating back to 05/04/2014, the most recent of 09/12/2023, 02/06/2022, 04/29/2020, 03/20/2019, and 03/05/2019 TISSUE DENSITY: There are scattered areas of fibroglandular density. FINDINGS: Stable appearance of the right breast to include effacing fibroglandular tissue with long-standing stable underlying circumscribed ovoid low density probable intramammary lymph node. No suspicious mass, developing asymmetry, or architectural distortion. No suspicious microcalcification. No axillary adenopathy. IMPRESSION: Long-standing stable asymmetric femoral glandular tissue probable intramammary lymph node. No mammographic evidence of malignancy. RECOMMENDATION: Routine ScreeningBilateral Findings, impression, and recommendation were discussed with the patient immediately following exam completion. OVERALL IMAGING ASSESSMENT: ACR BI-RADS 2 - BENIGN FINDING(S). Ordered By: SHERLEY VEGA Interpreted By: Jayden Mandel, 10/08/2023 11:37 AM Sherley Vega MD MAMMO Final Result * CYTOPATH CERV/VAG THIN LAYER [[id number]] (07/11/2023 10:29 AM CDT) THIN PREP PAP [address] [address] Department of Pathology Pathology Report CERVICAL/VAGINAL PAP SMEAR REPORT Name: LAURA GATES Age: 2 1965 (Age: 57) Location: [facility] Sex: F Collected Date: 07/11/2023 Hospital #: [id number] Date Received: 07/15/2023 Date Reported: 07/16/2023 Provider: SHERLEY VEGA MD INTERPRETATION CERVICAL/ENDOCERVI ROGER: SATISFACTORY FOR EVALUATION. ENDOCERVICAL/TRANS FORMATION ZONE COMPONENT ABSENT. NEGATIVE FOR INTRAEPITHELIAL LESION OR MALIGNANCY. NEGATIVE FOR HIGH RISK HPV. The FDA approved Aptima HPV assay is an in vitro nucleic acid amplification test for the qualitative detection of E6/E7 viral messenger RNA (mRNA) from 14 high-risk types of human papillomavirus (HPV) in cervical specimens. The high-risk HPV types detected by the assay include: 16,18,31,33,35,39, 45,51,52,56,58,59, 66, and 68. Electronically Signed Out By FÁTIMA Caro (ASCP) CLINICAL HISTORY Z12.4 PAP TEST SCREENING ThinPrep Pap Test with HR HPV testing in patient > 30 years requested. Date of Last Menstrual Period: UNK Menstrual Status: Post-Menopausal SPECIMEN SUBMITTED CERVICAL/ENDOCERVI ROGER Specimen Received:1 Thin Prep Vial, Image Assisted Pap (SMD) Please note: The Pap smear is not a diagnostic test. It is a screening test. Negative results on combined screening (Pap test and HPV-DNA) have a high negative predictive value (99.1-100 percent) for cervical cancer. The pap test is not effective in detecting cervical adenocarcinoma. [facility] 07/11/2023 10:2 9 AM CDT 07/15/2023 10:29 AM CDT Comment:CERVICAL/ENDOCERVICA L us Sherley Vega MD PATHOLOGY/CYTOLOGY ORDERABLES Final Result [facility] [address] [place] [address], * HUMAN PAPILLOMAVIRUS, HIGH-RISK TYPES (07/11/2023 8:00 AM CDT) SPEC DESCRIPTION CERVIX 07/15/20 10:58 AM CDT [facility] HPV DNA HIGH RISK NEGATIVE NEGATIVE 07/15/2023 3:31 PM CDT [facility] Comment:SEE CYTOLOGY REPORT 07/11/2023 8:00 AM CDT us Sherley Vega MD PATHOLOGY/CYTOLOGY ORDERABLES Final Result [facility] [address] [place] [address], * COLOGUARD (EXACT SCIENCE) (10/15/2022 10:49 AM ENVIRONMENTAL SERVICES TECH) COLOGUARD RESULT Negative Negative [employer] (CLIA #:[id number]) Comment: NEGATIVE TEST RESULT. A negative Cologuard result indicates a low likelihood that a colorectal cancer (CRC) or advanced adenoma (adenomatous polyps with more advanced pre-malignant features) is present. The chance that a person with a negative Cologuard test has a colorectal cancer is less than 1 in 1500 (negative predictive value >99.9%) or has an advanced adenoma is less than 5.3% (negative predictive value 94.7%). These data are based on a prospective cross-sectional study of 10,000 individuals at average risk for colorectal cancer who were screened with both Cologuard and colonoscopy. (Eddie Martinez et al, N Engl J Med 2014;370(14):6195-6583) The normal value (reference range) for this assay is negative. COLOGUARD RE-SCREENING RECOMMENDATION: Periodic colorectal cancer screening is an important part of preventive healthcare for asymptomatic individuals at average risk for colorectal cancer. Following a negative Cologuard result, the [place] Cancer Society and U.S. Multi-Society Task Force screening guidelines recommend a Cologuard re-screening interval of 3 years. References: [place] Cancer Society Guideline for Colorectal Cancer Screening: https://www.cancer.org/cancer/goaxg-wgsrdq-yqtfhi/maxgixjvz-lkdwgkrku-dkrxtac/ac s-rec ommendations.html.; Mohan BEY, Trevon BILLINGSLEY, Reginald GrandeK, Colorectal Cancer Screening: Recommendations for Physicians and Patients from the U.S. Multi-Society Task Force on Colorectal Cancer Screening , Am J Gastroenterology 2017; 112:2667-6226. TEST DESCRIPTION: Composite algorithmic analysis of stool DNA-biomarkers with hemoglobin immunoassay. Quantitative values of individual biomarkers are not reportable and are not associated with individual biomarker result reference ranges. Cologuard is intended for colorectal cancer screening of adults of either sex, 45 years or older, who are at average-risk for colorectal cancer (CRC). Cologuard has been approved for use by the U.S. FDA. The performance of Cologuard was established in a cross sectional study of average-risk adults aged 50-84. Cologuard performance in patients ages 45 to 49 years was estimated by sub-group analysis of near-age groups. Colonoscopies performed for a positive result may find as the most clinically significant lesion: colorectal cancer [4.0%], advanced adenoma (including sessile serrated polyps greater than or equal to 1cm diameter) [20%] or non- advanced adenoma [31%]; or no colorectal neoplasia [45%]. These estimates are derived from a prospective cross-sectional screening study of 10,000 individuals at average risk for colorectal cancer who were screened with both Cologuard and colonoscopy. (Eddie Martinez et al, N Engl J Med 2014;370(14):5368-9085.) Cologuard may produce a false negative or false positive result (no colorectal cancer or precancerous polyp present at colonoscopy follow up). A negative Cologuard test result does not guarantee the absence of CRC or advanced adenoma (pre-cancer). The current Cologuard screening interval is every 3 years. ([place] Cancer Society and U.S. Multi-Society Task Force). Cologuard performance data in a 10,000 patient pivotal study using colonoscopy as the reference method can be accessed at the following location: www.vSocial/results. Additional description of the Cologuard test process, warnings and precautions can be found at www.cologuard.com. STOOL STOOL SPECIMEN / Unknown 10/15/2022 10:49 AM ENVIRONMENTAL SERVICES TECH 10/16/2022 11:55 AM ENVIRONMENTAL SERVICES TECH Sherley Vega MD BODY FLUIDS AND STOOLS ORDERAB LES Final Result Performing Organization Address City/State/[facility] Co de Phone Number [employer] ([facility] [address] [facility]) [address] [place] [address], [employer] (CLIA #:[id number]) [address] [place] [address] from Last 3 Months or Most Recently Relevant to Health Maintenance Insurance Care Teams Net Developer Relationship Specialty [place] [address] [place] [address] PCP - General FAMILY PRACTICE 09/20/22
--- OUTSIDE RECORDS SUMMARY | 2025-06-24 15:37 | XMS_ITS | Clinical Summary ---
Author Organization [facility] Address [address] [place] [address] Care Team Providers Care Receiving Operator Name Role Phone Katherine Schafer MD Unavailable [phone] Casa Stinson MD Unavailable [phone] Moise Colon MD Primary Care Provider [phone] Allergies Active Allergy Reactions Criticality Noted Date Comments Aspirin Hives Medium 05/24/2017 Ciprofloxacin Hives Medium 05/24/2017 Ibuprofen Hives Medium 05/24/2017 Levofloxacin Hives Medium 05/24/2017 Nickel Hives Medium 10/18/2017 Sulfamethoxazole-Trimethoprim Hives Medium 2016 Medications omeprazole (PriLOSEC) 20 mg capsuleIndicati ons:Treatment of Non-Bleeding Gastric Disorder Take 1 capsule (20 mg total) by mouth daily before breakfast Active levalbuterol (XOPENEX HFA) 45 mcg/actuation inhaler Inhale 2 puffs every 6 (six) hours as needed for shortness of breath 2 Active diphenhydrAMINE (BENADRYL) 25 mg capsule Take 1 tablet/capsule (25 mg total) by mouth every 6 (six) hours as needed for itching Active fluticasone propionate (FLONASE) 50 mcg/actuation nasal spray Administer 1 spray into affected nostril(s) daily as needed for allergies Active acetaminophen (TYLENOL) 325 mg tablet Take 2 tablets (650 mg total) by mouth every 6 (six) hours as needed for pain Active hydroCHLOROthia zide (HYDRODIURIL) 12.5 mg tabletIndicatio ns:hypertension Take 12.5 mg by mouth daily Active Active Problems Patient Care Coordination No te Formatting of this note migh t be different from the original. Referring provider: Dr. Casa Stinson Ms. Laura Gates is a 56-year-old with tracheal stenosis. She was initially seen for symptoms of shortness of breath that started about 6 months ago. She also reports occasional wheezing. On 02/15/2022 the patient underwent pulmonary function testing which showed an FEV1 of 108% of predicted and a DLCO of 66% of predicted. The contour of the expiratory and inspiratory flow tracing are flattened in half of the maneuvers. There could be a fixed obstruction and this can be seen with extraluminal tracheal obstructions, tracheal stenosis, a corner are bulky mediastinal lymphadenopathy. Clinical correlation is recommended. On 03/22/2020 the patient underwent a CT of the neck soft tissue which noted focal stenosis of the superior trachea to 7 x 8 mm. On 06/27/2022 the patient underwent a chest CT with contrast which noted a 3 mm nodule in the left upper lobe, likely benign. There was focal stenosis of the trachea at C7. She has pre of morbid obesity with a BMI of 42.7 and recently diagnosed SHARIF. She reports being intubated only once during surgery for brain tumor resection in 2005. Patient is a never smoker. Patient presents today for further surgical evaluation. 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 Patient will be placed on Zantac 300 mg b.i.d.. She is to continue with omeprazole 40 mg q.a.m. 30 minutes prior to meal. Patient was provided with educational material pertaining to lifestyle changes and reflux precautions. Patient was provided with educational material regarding reflux precautions. Patient was instructed to refrain from eating a meal approximately 3 hours prior to bedtime. Patient was instructed to elevate the head of the bed by approximately 8 inches. Patient was to refrain from consuming spicy greasy fatty foods, dairy products, and excessive caffeine use. Patient was also advised to increase water consumption. Patient was also instructed on weight reduction and exercise regimen. Patient was also instructed on the importance of compliance with medications. Follow back up in 3 months to reassess response to treatment. Surgical History Surgery Date Site/Laterality Comments BRAIN SURGERY 10/07/2005 - 10/06/2006 tumor removal SECTION 10/07/1994 - 10/06/19951992 TUBAL LIGATION 10/07/1994 - 10/06/1995 Medical History Medical History Date Comments Bronchitis High cholesterol Mononucleosis Pneumonia Family History Medical History Relation Name Comments Stomach cancer Cousin Diabetes Father Stomach cancer Maternal Grandfather Bone cancer Mother Heart disease Mother Laryngeal Cancer Mother Lung cancer Mother Relation Name Status Comments Cousin Father Maternal Grandfather Mother Social History Tobacco Use Types Packs/Day Years Used Date Smoking Tobacco: Never Smokeless Tobacco: Never Tobacco Cessation:Counseling Given: Not Answered Alcohol Use Standard Drinks/Week Comments Yes 0 (1 standard drink = 0.6 oz pur e alcohol) AUDIT-C Answer Date Recorded Q1: How often do you have a drink containing alc ohol? 2-4 times a month 08/22/2022 Q2: How many drinks containi ng alcohol do you have on a typical day when you are drinking? 1 or 2 08/22/2022 Q3: How often do you have si x or more drinks on one occasion? Never 08/22/2022 Personal Safety Answer Date Recorded Getting School Help Needed Not on file 10/11 Comments Unknown Sex and Gender Information Value Date Recorded Sex Assigned at Not on file Legal Sex Female 9:23 AM CDT Gender Identity Not on file Sexual Orientation Not on file Obstetrics History Last Filed Vital Signs Vital Sign Reading Time Taken Comments Blood Pressure 117/75 09/24/2022 9:40 AM SOLUTIONS DEVELOPMENT ANALYST Pulse 76 09/24/2022 9:40 AM SOLUTIONS DEVELOPMENT ANALYST Temperature 36.4 C (97.5 F) 09/24/2022 9:05 AM SOLUTIONS DEVELOPMENT ANALYST Respiratory Rate 14 09/24/2022 9:40 AM SOLUTIONS DEVELOPMENT ANALYST Oxygen Saturation 100% 09/24/2022 9:40 AM SOLUTIONS DEVELOPMENT ANALYST Inhaled Oxygen Concentration - - Weight 113.4 kg (250 lb) 08/22/2022 9:05 AM SOLUTIONS DEVELOPMENT ANALYST Height 165.1 cm (5' 5) 08/22/2022 9:05 AM SOLUTIONS DEVELOPMENT ANALYST Body Mass Index 41.6 08/22/2022 9:05 AM SOLUTIONS DEVELOPMENT ANALYST Plan of Treatment Health Maintenance Due Date Last Done Comments Breast Cancer Screening-Mammogram 1965 Cervical Cancer Screening 1965 Colon Cancer Screening-Colonoscopy 1965 Depression Screening 1965 Hepatitis C Screening 1967 DTaP/Tdap/Td Vaccine (1 - Tdap) 1978 Hepatitis B Screening 1985 Regular Well Visit/Exam 18-64 1985 Zoster Vaccine (1 of 2) 2017 Covid-19 Vaccine (4 - 2024-2 6 season) 2025 04/19/2022, 03/18/2021, 02/18/2021 Influenza Vaccine (#1) 2025 07/28/2013 Pneumococcal vaccine <65 Aged Out No longer eligible based on patient's age to complete this topic Insurance [employer] CLAIMS [employer] CLAIMS Care Teams Receiving Operator Relationship Specialty Start Date End Date Moise Colon MD [address] [place] [id number] PCP - General Family Medicine 09/04/22 Katherine Schafer MD [address] [place] [address] Family Medicine 06/19/22 Casa Stinson MD [address] [facility] [address] [place] [address] Referring Physician Pulmonary Disease 07/11/22
== END 2025-06-24 15:33 | disposition home or self-care (01) ==
LOC: ANHFOHIMG 15:34
PROVIDERS: PCP Family Medicine; Visit Provider Family Medicine
DX: Z12.31 Encounter for screening mammogram for malignant neoplasm of breast (principal); R92.8 Other abnormal and inconclusive findings on diagnostic imaging of breast
CPT/HCPCS: 77063; 77067

== ENCOUNTER 2025-07-30 13:15 | Outpatient (CLI) | payer OTHER, SELFPAY ==
--- NOTE | ~2025-07-30 | MMUS_ITS ---
EXAMINATION: MM diagnostic john RT w [facility], US breast RT limited INDICATION: 59-year old female; BI-RADS 0, callback from screening to evaluate right breast focal asymmetry. COMPARISON: 06/24/2025 through 03/05/2019 TECHNIQUE: Digital breast tomosynthesis True lateral and spot compression CC and MLO views of the RIGHT breast were obtained with computer-aided detection to assist in interpretation of the study. FINDINGS: The breasts are almost entirely fatty. The focal asymmetry of concern in the upper outer right breast persists as a circumscribed mass on spot compression views. RIGHT BREAST ULTRASOUND FINDINGS: Targeted evaluation of the area of concern was completed. At 10:00, 4 cm FN, there is a 1.02 x 0.27 x 0.72 cm circumscribed parallel oriented hypoechoic mass which correlates to the mammographic finding. This is a benign finding that has been relatively stable on mammography examination. IMPRESSION: RIGHT breast mass benign-appearing and stable on mammogram dating back to 04/29/2020. RECOMMENDATION: Annual screening mammography in 12 months. BI-RADS 2, BENIGN Reviewed, dictated and finalized at location B. IMPRESSION: RIGHT breast mass benign-appearing and stable on mammogram dating back to 2019. RECOMMENDATION: Annual screening mammography in 12 months. BI-RADS 2, BENIGN
--- OUTSIDE RECORDS SUMMARY | 2025-07-30 13:17 | XMS_ITS | Clinical Summary ---
Author Organization [facility] Address [address] [facility] [place] [address] Phone Care Team Providers Care Early Childhood Name Role Phone Pcp, No Primary Care [...] on file Legal Sex Female 12:01 AM PASTE UP ARTIST Gender Identity Not on file Sexual Orientation [...] Influenza Vaccine 06/07/2025 Insurance [employer] Care Teams Early Childhood Relationship Specialty Start Date End Date Pcp, No PCP - General 10/18/17
--- OUTSIDE RECORDS SUMMARY | 2025-07-30 13:17 | XMS_ITS | Clinical Summary ---
Author Organization [facility] Address [address] [place] [id number] Care Team Providers Care Animal Trainer Supervisor Name Role Phone Katherine Schafer MD Unavailable [phone] Casa Stinson MD Unavailable [phone] Moise Colon MD Primary Care Provider [phone] Allergies Active Allergy Reactions Criticality Noted Date [...] (07/13/2022): Added automatically from request for surgery [id number] Laryngopharyngeal reflux (LPR) 06/12/2017 Assessment & Plan [...] Comments Blood Pressure 117/75 09/24/2022 9:40 AM COAL SHOOTER Pulse 76 09/24/2022 9:40 AM COAL SHOOTER Temperature 36.4 C (97.5 F) 09/24/2022 9:05 AM COAL SHOOTER Respiratory Rate 14 09/24/2022 9:40 AM COAL SHOOTER Oxygen Saturation 100% 09/24/2022 9:40 AM COAL SHOOTER Inhaled Oxygen Concentration - - Weight 113.4 kg (250 lb) 08/22/2022 9:05 AM COAL SHOOTER Height 165.1 cm (5' 5) 08/22/2022 9:05 AM COAL SHOOTER Body Mass Index 41.6 08/22/2022 9:05 AM COAL SHOOTER Plan of Treatment Health Maintenance Due Date [...] patient's age to complete this topic Insurance writewith CLAIMS writewith CLAIMS Care Teams Animal Trainer Supervisor Relationship Specialty Start Date End Date Moise Colon MD [address] [place] [id number] PCP - General Family Medicine 09/04/22 Katherine Schafer MD [address] [place] [address] Family Medicine 06/19/22 Casa Stinson MD [address] [facility] [address] [place] [address] Referring Physician Pulmonary Disease 07/11/22
== END 2025-07-30 13:16 | disposition home or self-care (01) ==
LOC: ANHFOHIMG 13:16
PROVIDERS: PCP Family Medicine; Visit Provider Family Medicine
DX: R92.8 Other abnormal and inconclusive findings on diagnostic imaging of breast (principal); N63.11 Unspecified lump in the right breast, upper outer quadrant
CPT/HCPCS: 76642; 77061; 77065; G0279